=== PATIENT | female | born 2000 | race Two or more races ===

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

== ENCOUNTER 2020-06-06 15:03 | Observation (INO) | payer MEDICAID ==
[2020-06-06] MEDS ORDERED: LACTATED RINGER'S 1,000 ML IV ONE (17:15)
[2020-06-06] MEDS ORDERED: cefTRIAXone 1GM/50ML D5W 50 ML IV ONE (17:15)
[2020-06-06 20:57] LABS: Urine Bacteria MOD /hpf (None Seen); Urine Blood Negative /uL (Negative); Urine Specific Gravity 1.011 (1.001-1.035); Urine WBC 30 /hpf (0 - 5); Urine WBC Clumps PRESENT /hpf (None Seen)
[2020-06-06 21:47] LABS: Basophils # (auto) 0 10 ^3/uL (0-0.2); Basophils % (auto) 0.2 % (0.0-2.0); Eosinophils # (auto) 0 10 ^3/uL (0-0.8); Eosinophils % (auto) 0.3 % (0.0-7.0); Hematocrit 30.7 % (36.0-46.0); Hemoglobin 10.3 g/dL (12.2-16.2); Lymphocytes # (auto) 1.1 10 ^3/uL (0.4-5.4); Lymphocytes % (auto) 9.1 % (10.0-50.0); Mean Corpuscular Hemoglobin 29.2 pg (28.0-32.0); Mean Corpuscular Hgb Conc. 33.5 g/dL (32.0-36.0); Mean Corpuscular Volume 87.3 fL (80.0-100.0); Monocytes # (auto) 1.2 10 ^3/uL (0-1.3); Monocytes % (auto) 10.6 % (0.0-12.0); Neutrophils # (auto) 9.4 10 ^3/uL (1.6-8.6); Neutrophils % (auto) 79.8 % (37.0-80.0); Platelet Count (auto) 231 10^3/uL (140-450); Red Blood Cells 3.52 10^6/uL (4.0-5.20); Red Cell Distribution Width 13.4 % (11.8-14.3); White Blood Cell 11.8 10^3/uL (4.4-10.8)
[2020-06-06 22:00] LABS: Albumin 2.3 g/dL (3.4-5.0); Calcium 8.3 mg/dL (8.5-10.1); Potassium 3.2 mmol/L (3.5-5.1)
[2020-06-06] MEDS ORDERED: ceFAZolin 1GM 2 GM in D5W 5% 100 ML IV ONE (22:00)
[2020-06-06 22:03] LABS: Bilirubin, Total 0.2 mg/dL (0.2-1.0); Total Protein 6.4 g/dL (6.4-8.2)
[2020-06-06] MEDS ORDERED: POTASSIUM CHL 20 Meq TABLET PO ONE (22:15)
[2020-06-06] MEDS ORDERED: ceFAZolin 1GM/50ML 100 ML IV ONE (23:12)
[2020-06-06] MEDS: LACTATED RINGER'S 1,000 ML IV SCH (23:15)
[2020-06-06] MEDS ORDERED: ACETAMINOPHEN 325 MG TAB PO PRN (23:30)
[2020-06-07] MEDS: LACTATED RINGER'S 1,000 ML IV SCH (04:47)
[2020-06-07] MEDS ORDERED: ceFAZolin 1GM/50ML 50 ML IV SCH (06:00)
[2020-06-07] MEDS ORDERED: FERROUS SULFATE 325 MG TAB PO SCH (08:00)
== END 2020-06-07 12:20 | disposition home or self-care (01) ==
LOC: LDRP 15:03 → UNDOADMOB 15:03 → UNDODISOB 06-07 12:20
PROVIDERS: ADMIT Specialist; ATTEND Specialist
DX: O26.892 Other specified pregnancy related conditions, second trimester (principal); Z20.818 Contact with and (suspected) exposure to other bacterial communicable diseases; O99.891 Other specified diseases and conditions complicating pregnancy; M54.5 Low back pain; R10.30 Lower abdominal pain, unspecified; Z3A.23 23 weeks gestation of pregnancy
CPT/HCPCS: 36415; 59025; 76815; 80053; 81001; 81002; 85025; 87086; 87088; 87186; 87426; 94762; 96361; 96365; 96366; 96367; G0378; J0690; J0696; J7030; J7060; U0003; 96360

== ENCOUNTER 2020-08-18 08:50 | Observation (INO) | payer MEDICAID ==
[~2020-08-18] VITALS: Ht 154.9 cm; Wt 62.6 kg
[2020-08-18] MEDS ORDERED: LACTATED RINGER'S 1,000 ML IV ONE ×2 (09:30→10:00)
[2020-08-18] MEDS ORDERED: ACETAMINOPHEN 325 MG TAB PO ONE (10:02)
[2020-08-18] MEDS: ACETAMINOPHEN 325 MG TAB PO PRN ×3 (10:14→19:39)
[2020-08-18] MEDS ORDERED: ceFAZolin 2 GM in D5W 5% 100 ML IV SCH (11:00)
[2020-08-18 12:05] LABS: Basophils # (auto) 0 10 ^3/uL (0-0.2); Eosinophils # (auto) 0 10 ^3/uL (0-0.8); Nucleated Red Blood Cells % 0.1 %; Red Cell Distribution Width 14.7 % (11.8-14.3)
[2020-08-18 12:09] LABS: Basophils % (auto) 0.2 % (0.0-2.0); Hematocrit 31.6 % (36.0-46.0); Hemoglobin 10.4 g/dL (12.2-16.2); Lymphocytes # (auto) 0.9 10 ^3/uL (0.4-5.4); Mean Corpuscular Hemoglobin 26.9 pg (28.0-32.0); Mean Corpuscular Hgb Conc. 32.8 g/dL (32.0-36.0); Mean Corpuscular Volume 82.1 fL (80.0-100.0); Monocytes # (auto) 1.6 10 ^3/uL (0-1.3); Monocytes % (auto) 10.9 % (0.0-12.0); Neutrophils # (auto) 12.4 10 ^3/uL (1.6-8.6); Neutrophils % (auto) 82.9 % (37.0-80.0); Red Blood Cells 3.84 10^6/uL (4.0-5.20)
[2020-08-18 12:36] LABS: BUN/Creatinine Ratio 12.1; Calcium 8.4 mg/dL (8.5-10.1)
[2020-08-18 13:22] LABS: Potassium 2.8 mmol/L (3.5-5.1)
[2020-08-18] MEDS ORDERED: POTASSIUM CHL 20 Meq TABLET PO ONE ×2 (13:51→14:00)
[2020-08-18] MEDS ORDERED: TERBUTALINE SULFATE 1 MG/ML 1ML VIAL SC ONE ×2 (13:51→14:00)
[2020-08-18 14:45] LABS: Alcohol, Urine < 3.0 mg/dL (0-10); Amphetamine Screen, Urine NEGATIVE (NEGATIVE); Barbiturate Scree,Urine NEGATIVE (NEGATIVE); Benzodiazephine Screen, Urine NEGATIVE (NEGATIVE); Cannabinoid Screen, Urine NEGATIVE (NEGATIVE); Cocaine Screen, Urine NEGATIVE (NEGATIVE); Opiate Scree,Urine NEGATIVE (NEGATIVE); Phencyclidine Screen, Urine NEGATIVE (NEGATIVE)
[2020-08-18 14:48] LABS: Urine Bacteria FEW /hpf (None Seen); Urine Blood TRACE /uL (Negative); Urine Specific Gravity 1.016 (1.001-1.035); Urine WBC 463 /hpf (0 - 5); Urine WBC Clumps PRESENT /hpf (None Seen)
[2020-08-18] MEDS ORDERED: ONDANSETRON HCL 4 MG/2 ML VIAL IV PRN ×2 (15:30→19:30)
[2020-08-18] MEDS ORDERED: ONDANSETRON HCL 4 MG/2 ML VIAL ONE (15:33)
[2020-08-18] MEDS ORDERED: POTASSIUM CHL 20 Meq TABLET PO SCH (18:00)
[2020-08-18] MEDS ORDERED: NIFEdipine 10 MG CAP ONE (20:36)
[2020-08-18 20:40] LABS: Albumin 2.1 g/dL (3.4-5.0); Calcium 8.1 mg/dL (8.5-10.1); Potassium 3.2 mmol/L (3.5-5.1)
[2020-08-18 20:44] LABS: BUN/Creatinine Ratio 10.3; Bilirubin, Total 0.4 mg/dL (0.2-1.0); Total Protein 6.6 g/dL (6.4-8.2)
[2020-08-18] MEDS ORDERED: BETAMETHASONE ACET (30mg/5ml) 5ml Vial 6mg/ml ONE (20:59)
[2020-08-18] MEDS ORDERED: BETAMETHASONE ACET (30mg/5ml) 5ml Vial 6mg/ml IM ONE (21:00)
[2020-08-18] MEDS: ceFAZolin 2 GM in D5W 5% 100 ML IV SCH (21:10)
[2020-08-19] MEDS ORDERED: POTASSIUM CHL 20 Meq TABLET PO SCH ×2 (00:20→07:00)
[2020-08-19] MEDS ORDERED: NIFEdipine 10 MG CAP ONE (00:26)
[2020-08-19] MEDS: NIFEdipine 10 MG CAP PO SCH ×4 (00:30→22:06)
[2020-08-19] MEDS: ACETAMINOPHEN 325 MG TAB PO PRN (00:38)
[2020-08-19] MEDS: ceFAZolin 2 GM in D5W 5% 100 ML IV SCH ×3 (05:36→21:41)
[2020-08-19] MEDS: POTASSIUM CHL 20 Meq TABLET PO SCH ×2 (07:11→10:00)
[2020-08-19] MEDS: LACTATED RINGER'S 1,000 ML IV SCH ×2 (09:00→19:41)
[2020-08-19] MEDS ORDERED: NIFEdipine 10 MG CAP PO SCH (13:00)
[2020-08-19] MEDS ORDERED: BETAMETHASONE ACET (30mg/5ml) 5ml Vial 6mg/ml IM STA (22:07)
[2020-08-20] MEDS ORDERED: ALUM & MAG HYDROX-SIMETH LIQ(MAALOX) 30 ML PO ONE
[2020-08-20] MEDS: ceFAZolin 2 GM in D5W 5% 100 ML IV SCH (06:01)
[2020-08-20] MEDS: NIFEdipine 10 MG CAP PO SCH (06:06)
[2020-08-20] MEDS: LACTATED RINGER'S 1,000 ML IV SCH (06:06)
== END 2020-08-20 08:12 | disposition home or self-care (01) ==
LOC: LDRP 08:50
PROVIDERS: ADMIT Obstetrics & Gynecology; ATTEND Obstetrics & Gynecology
DX: O23.03 Infections of kidney in pregnancy, third trimester (principal); N13.6 Pyonephrosis; Z20.828 Contact with and (suspected) exposure to other viral communicable diseases; O26.893 Other specified pregnancy related conditions, third trimester; R50.9 Fever, unspecified; Z3A.34 34 weeks gestation of pregnancy
CPT/HCPCS: 36415; 59025; 76705; 76775; 76805; 76817; 76818; 80048; 80053; 80307; 81001; 85025; 87040; 87086; 87088; 87186; 87426; 94760; 96361; 96365; 96366; 96372; 96375; G0378; J0690; J0702; J2405; J3105; J7060; U0003; 96360; 96374

== ENCOUNTER 2020-08-24 11:27 | Observation (INO) | payer MEDICAID ==
[2020-08-24] MEDS ORDERED: PREN-96 PO (12:20)
[2020-08-24] MEDS ORDERED: NITR-87 PO (12:20)
[2020-08-24] MEDS ORDERED: NIF10C PO (12:20)
== END 2020-08-24 12:43 | disposition home or self-care (01) ==
LOC: LDRP 11:27
PROVIDERS: ADMIT Obstetrics & Gynecology; ATTEND Obstetrics & Gynecology
DX: O60.03 Preterm labor without delivery, third trimester (principal); O35.8XX0 Maternal care for other (suspected) fetal abnormality and damage, not applicable or unspecified; Z3A.35 35 weeks gestation of pregnancy
CPT/HCPCS: 59025; 76818; 81002; G0378

== ENCOUNTER 2020-08-31 09:06 | Observation (INO) | payer MEDICAID ==
[~2020-08-31] VITALS: Ht 157.5 cm; Wt 61.2 kg
[~2020-08-31 09:06] MED LIST: NIF10C PO; NITR-87 PO; PREN-96 PO
== END 2020-08-31 11:17 | disposition home or self-care (01) ==
LOC: LDRP 09:06
PROVIDERS: ADMIT Obstetrics & Gynecology; ATTEND Obstetrics & Gynecology
DX: O60.03 Preterm labor without delivery, third trimester (principal); O99.891 Other specified diseases and conditions complicating pregnancy; N13.30 Unspecified hydronephrosis; Z91.040 Latex allergy status; Z3A.36 36 weeks gestation of pregnancy
CPT/HCPCS: 59025; 76818; 81002; G0378

== ENCOUNTER 2020-09-14 21:53 | Observation (INO) | payer MEDICAID ==
[~2020-09-14] VITALS: Ht 157.5 cm; Wt 62.6 kg
== END 2020-09-15 01:51 | disposition home or self-care (01) ==
LOC: LDRP 21:53
PROVIDERS: ADMIT Specialist; ATTEND Specialist
DX: O62.9 Abnormality of forces of labor, unspecified (principal); Z3A.38 38 weeks gestation of pregnancy
CPT/HCPCS: 59025; 81002; G0378

== ENCOUNTER 2020-09-20 01:30 | Inpatient (IN) | payer MEDICAID ==
[~2020-09-20] VITALS: Ht 157.5 cm; Wt 63.0 kg
[2020-09-20] MEDS ORDERED: DERMOPLAST 60ML BOTTLE TOP PRN (02:00)
[2020-09-20] MEDS ORDERED: WITCH HAZEL-GLYCERIN PAD TOP PRN (02:00)
[2020-09-20] MEDS ORDERED: PROMETHAZINE HCL 25 MG/ML 1ML IV PRN (02:00)
[2020-09-20] MEDS ORDERED: LIDOCAINE 2%HCL (LOCAL ANESTH.) INJ 20ML MDV IJ ONE (02:00)
[2020-09-20] MEDS ORDERED: BUTORPHANOL TARTRATE 2 MG/1 ML VIAL IV PRN ×2 (02:00)
[2020-09-20] MEDS ORDERED: PHISODERM TOP SOLN 240ML BTL TOP PRN (02:00)
[2020-09-20] MEDS ORDERED: LACT. RINGERS/OXYTOCIN 20UNITS 1,000 ML IV SCH (02:15)
[2020-09-20] MEDS ORDERED: OXYTOCIN 10UNIT/ML 1ML VIAL IM ONE (02:15)
[2020-09-20] MEDS ORDERED: TERBUTALINE SULFATE 1 MG/ML 1ML VIAL SC ONE (02:15)
[2020-09-20] MEDS ORDERED: LACT. RINGERS/OXYTOCIN 20UNITS 1,000 ML IV ONE (02:15)
[2020-09-20 02:50] LABS: Basophils # (auto) 0 10 ^3/uL (0-0.2); Basophils % (auto) 0.3 % (0.0-2.0); Hematocrit 34.5 % (36.0-46.0); Hemoglobin 11.5 g/dL (12.2-16.2); Mean Corpuscular Hemoglobin 26.6 pg (28.0-32.0); Mean Corpuscular Hgb Conc. 33.3 g/dL (32.0-36.0); Nucleated Red Blood Cells % 0.1 %; Red Blood Cells 4.32 10^6/uL (4.0-5.20)
[2020-09-20 02:51] LABS: Eosinophils # (auto) 0.1 10 ^3/uL (0-0.8); Eosinophils % (auto) 0.6 % (0.0-7.0); Lymphocytes % (auto) 16.7 % (10.0-50.0); Mean Corpuscular Volume 79.8 fL (80.0-100.0); Monocytes % (auto) 8.5 % (0.0-12.0); Neutrophils # (auto) 8.9 10 ^3/uL (1.6-8.6); Neutrophils % (auto) 73.9 % (37.0-80.0); Platelet Count (auto) 288 10^3/uL (140-450); Red Cell Distribution Width 16.4 % (11.8-14.3)
[2020-09-20 03:08] LABS: Albumin 2.4 g/dL (3.4-5.0); BUN/Creatinine Ratio 20.3; Calcium 8.9 mg/dL (8.5-10.1); Potassium 3.7 mmol/L (3.5-5.1)
[2020-09-20 03:11] LABS: Bilirubin, Total 0.3 mg/dL (0.2-1.0); Total Protein 7.5 g/dL (6.4-8.2)
[2020-09-20 03:13] LABS: INR 0.9 (0.9-1.15); Partial Thromboplastin Time 25.2 sec (23.0-31.2)
[2020-09-20] MEDS: LACTATED RINGER'S 1,000 ML IV SCH ×2 (03:16→11:54)
[2020-09-20 03:30] LABS: Urine Bacteria MOD /hpf (None Seen); Urine Blood Negative /uL (Negative); Urine Specific Gravity 1.012 (1.001-1.035); Urine WBC 93 /hpf (0 - 5); Urine WBC Clumps PRESENT /hpf (None Seen)
[2020-09-20] MEDS ORDERED: NALOXONE HCL 0.4 MG/ML VIAL IV ONE ×2 (04:45→05:45)
[2020-09-20] MEDS ORDERED: ePHEDrine SULFATE 50 MG/ML AMP IV ONE ×2 (04:45→05:45)
[2020-09-20] MEDS ORDERED: LACTATED RINGER'S 500 ML IV ONE (04:45)
[2020-09-20] MEDS ORDERED: fentaNYL CITRATE 100 MCG/2 ML VL IV ONE (04:45)
[2020-09-20] MEDS ORDERED: ROPIVACAINE HCL 200 ML EPI SCH ×2 (04:45→05:45)
[2020-09-20] MEDS ORDERED: ceFAZolin 1GM/50ML 50 ML IV ONE (05:27)
[2020-09-20] MEDS ORDERED: LIDOCAINE 2%HCL (LOCAL ANESTH.) INJ 10ml MDV IJ ONE (13:45)
[2020-09-20] MEDS: ceFAZolin 1GM/50ML 50 ML IV SCH ×3 (14:00→22:30)
[2020-09-20] MEDS ORDERED: LIDOCAINE 2%HCL (LOCAL ANESTH.) INJ 20ML MDV ONE (14:05)
[2020-09-20] MEDS ORDERED: miSOPROStol 50 MCG per PRE-CUT 1/2 TAB PR STA (14:14)
[2020-09-20] MEDS ORDERED: miSOPROStol 50 MCG per PRE-CUT 1/2 TAB PO STA (14:14)
[2020-09-20] MEDS ORDERED: ACETAMINOPHEN 325 MG TAB PO PRN ×2 (14:15→16:30)
[2020-09-20] MEDS ORDERED: ACETAMINOPHEN 325 MG TAB PO ONE ×2 (14:17→14:45)
[2020-09-20] MEDS ORDERED: miSOPROStol 100 mcg TAB ONE (14:36)
[2020-09-20] MEDS ORDERED: miSOPROStol 50 MCG per PRE-CUT 1/2 TAB PR PRN (14:45)
[2020-09-20] MEDS ORDERED: miSOPROStol 50 MCG per PRE-CUT 1/2 TAB SL PRN (14:45)
[2020-09-20] MEDS ORDERED: IBUPROFEN 600 MG TAB PO PRN (16:30)
[2020-09-20] MEDS: PIPERACILLIN-TAZOB 3.375GM 100 ML IV SCH (18:00)
[2020-09-20 19:00] VITALS: BP 112/75
[2020-09-20 23:00] VITALS: BP 118/78
[2020-09-21 03:00] VITALS: BP 121/80
[2020-09-21] MEDS: PIPERACILLIN-TAZOB 3.375GM 100 ML IV SCH ×5 (06:00→22:14)
[2020-09-21 07:00] VITALS: BP 125/85
[2020-09-21 07:07] LABS: RPR Non Reactive (Non Reactive)
[2020-09-21 11:00] VITALS: BP 121/65
[2020-09-21 15:00] VITALS: BP 125/70
[2020-09-21 19:30] VITALS: BP 117/71
[2020-09-21 23:00] VITALS: BP 129/87
[2020-09-22 03:30] VITALS: BP 114/75
[2020-09-22] MEDS: PIPERACILLIN-TAZOB 3.375GM 100 ML IV SCH ×2 (03:55→11:19)
[2020-09-22 07:00] VITALS: BP 114/80
[2020-09-22 11:00] VITALS: BP 107/77
[2020-09-22 15:00] VITALS: BP 122/77
== END 2020-09-22 15:45 | disposition home or self-care (01) | DRG 560 ==
LOC: LDRP 01:30 → OBSVTOIN 01:58 → LDRP 03:26
PROVIDERS: ADMIT Obstetrics & Gynecology; ATTEND Obstetrics & Gynecology
PROC: 10E0XZZ Delivery of Products of Conception, External Approach (ICD-10-PCS; principal; 2020-09-20)
PROC: 0KQM0ZZ Repair Perineum Muscle, Open Approach (ICD-10-PCS; 2020-09-20)
PROC: 0W8NXZZ Division of Female Perineum, External Approach (ICD-10-PCS; 2020-09-20)
PROC: 3E0R3BZ Introduction of Anesthetic Agent into Spinal Canal, Percutaneous Approach (ICD-10-PCS; 2020-09-20)
PROC: 00HU33Z Insertion of Infusion Device into Spinal Canal, Percutaneous Approach (ICD-10-PCS; 2020-09-20)
DX: O98.52 Other viral diseases complicating childbirth (principal); O41.1230 Chorioamnionitis, third trimester, not applicable or unspecified; U07.1 COVID-19; O70.1 Second degree perineal laceration during delivery; Z3A.39 39 weeks gestation of pregnancy; Z37.0 Single live birth
CPT/HCPCS: 36415; 59409; 62282; 80053; 81001; 84112; 85025; 85610; 85730; 86592; 86850; 86900; 86901; 87426; 94762; 96365; G0378; J0690; J2001; J2543; J2590